=== PATIENT | female | born 1960 | race Caucasian/White ===

== ENCOUNTER 2018-06-29 13:26 | Emergency (ER) | payer OTHER ==
[~2018-06-29] VITALS: Ht 157.5 cm; Wt 66.7 kg
[2018-06-29 13:26] VITALS: BP 126/80
[~2018-06-29 13:26] MED LIST: LANS30CA56 PO
[2018-06-29] MEDS ORDERED: IBUPROFEN 600 MG TABLET PO ONE ×2 (14:20→14:30)
[2018-06-29 14:33] LABS: APPEARANCE,URINE Cloudy (CLEAR); BILIRUBIN,URINE Negative (NEGATIVE); BLOOD, URINE Moderate Ery/uL (NEGATIVE); COLOR,URINE Yellow (YELLOW); KETONES,URINE Negative (NEGATIVE); LEUKOCYTE ESTERASE ,URINE Moderate (NEGATIVE); NITRITE, URINE Negative (NEGATIVE); PH,URINE 6.5 (5.0-8.0); PROTEIN,URINE 30 mg/dl (NEGATIVE); UGLUCOSE Negative (NEGATIVE); UROBILINOGEN,URINE 0.2 EU/dL (0.2)
[2018-06-29 14:41] LABS: BACTERIA,URINE Few /HPF (None Seen); RBC,URINE 15-20 /HPF (0-2); SQUAMOUS EPITHELIAL CELL,UR Few /HPF (None Seen); WBC,URINE 80-100 /HPF (0-3)
--- NOTE | 2018-07-03 12:52 | NUR ---
INFECTION CONTROL NOTE per patient I gave the positive urine cx result to her daughter Leloa [phone] . Daughter said, her mom is taking her antibiotics and feeling much better,
== END 2018-06-29 15:19 | disposition home or self-care (01) ==
LOC: ER 13:33
DX: N39.0 Urinary tract infection, site not specified (principal)
CPT/HCPCS: 81001; 87077; 87086; 87186; 99283; A4606; 81000-TC